=== PATIENT | female | born 1995 | race Caucasian/White ===

== ENCOUNTER 2020-07-12 10:24 | Outpatient (NON) | payer OTHER, SELFPAY ==
[2020-07-12 23:56] LABS: SARS-CoV-2 RNA PCR Negative
== END 2020-07-12 10:25 ==
PROVIDERS: PCP Physician Assistant; Visit Provider Physician Assistant
DX: Z20.828 Contact with and (suspected) exposure to other viral communicable diseases (principal)
CPT/HCPCS: 87635; C9803; U0003

== ENCOUNTER 2024-01-09 08:53 | Outpatient (CLI) | payer OTHER, SELFPAY ==
--- NOTE | ~2024-01-09 | US_ITS ---
EXAMINATION: US pelvic complete DATE: 01/09/2024 09:16 INDICATION: Left ovarian cyst Comparison:Ultrasound dated 04/03/2018 TECHNIQUE: Multiple transabdominal sonographic images of the pelvis performed. FINDINGS: The uterus measures 9.3 x 4.2 x 4.7 cm. IUD is located in the endometrium. The endometrial complex measures 8 mm. The right ovary measures 1.7 x 2.8 x 1.3 cm and the left ovary measures 3.5 x 2.8 x 3.6 cm. There ar e small follicles in each ovary. Normal doppler signal in both ovaries. There is no free fluid in the pelvis. There are no abnormal masses seen on either side. IMPRESSION: 1. Unremarkable pelvic ultrasound. Reviewed, dictated and finalized at location B.
== END 2024-01-09 08:54 ==
LOC: MICIMG 08:56
PROVIDERS: PCP Advanced Practice Midwife; Visit Provider Advanced Practice Midwife
DX: N83.202 Unspecified ovarian cyst, left side (principal)
CPT/HCPCS: 76856